=== PATIENT | male | born 1970 | race Caucasian/White ===

== ENCOUNTER 2016-08-05 15:50 | Inpatient (IN) | payer MEDICAID ==
[2016-08-05] MEDS ORDERED: ONDANSETRON 4 MG/2 ML VIAL ONE (16:05)
--- NOTE | 2016-08-05 16:06 | CPEKG ---
Heart Rate: 108 RR Interval: 556 P-R Interval: 164 QRSD Interval: 78 QT Interval: 324 QTC Interval: 435 P [place]: 73 QRS [place]: 86 T Wave [place]: 23 EKG Severity - OTHERWISE NORMAL ECG - EKG Impression: SINUS TACHYCARDIA Electronically Signed By: Holly Llamas 05-Aug-2016 17:01:03
[2016-08-05] MEDS ORDERED: NS 1,000 ML IV ONE ×3 (16:18→16:23)
[2016-08-05] MEDS ORDERED: ONDANSETRON 4 MG/2 ML VIAL IVP ONE (16:18)
--- NOTE | 2016-08-05 16:24 | EDPHY ---
HPI/HX/ROS/PE/MDM Narrative: CHIEF COMPLAINT: Possible DKA. HISTORY OF PRESENT ILLNESS: The patient is a 46-year-old male with history of diabetes, presenting with possible DKA. According to the patent's significant other, the patient had sugars in the 600s last night after insulin improved to 400s. This morning BGL elevated, he received 16 units Levemir and 10 Humulin. He did not eat anything today. While working today the patient began to feel nauseous, he starting drinking a lot of fluids, and subsequently began vomiting. The patient has continued to vomit for the past 3-4 hours. He urinated on a ketones test strip which showed DKA. The patient was last in DKA 2 months ago after cold-like symptoms. Patient has not had recent fever, cough or cold symptoms. REVIEW OF SYSTEMS: Aside from elements discussed in the HPI, a comprehensive 10-point review of systems was reviewed and is negative. PAST MEDICAL HISTORY: Diabetes, Gastroparesis, CAD, Hypertension, Neuropathy, Testicular cancer SOCIAL HISTORY: Sober 5 years. Marijuana use. VITAL SIGNS: Reviewed by me GENERAL: Tachypneic, uncomfortable appearing, ketones on his breath HEENT: Atraumatic. Eyes: No icterus, no injection. Mouth: dry mucous membranes. No erythema or lesions. Neck: supple with no adenopathy. LUNGS: Clear to auscultation bilaterally, no wheezes, rhonchi or rales. Tachypneic. CARDIAC: Tachycardic, no rubs, murmurs or gallops. ABDOMEN: Soft, nontender, nondistended, bowel sounds normal. BACK: No CVA tenderness. EXTREMITIES: No trauma. No edema. Range of motion is normal throughout. NEURO: Alert and oriented, grossly nonfocal. SKIN: Warm and dry, no rash. PSYCHIATRIC: Normal mentation, no agitation. Portions of this note were transcribed by a medical coding technician. I personally performed a history, physical exam, medical decision making, and confirmed accuracy of information the transcribed note. ED Course: Patient with history of diabetes presents with DKA. Patient has ketones on his breath. He has DMM and continues to vomit. I-stat shows BGL in the 300. Lab work ordered. Patient started on 2L normal saline. BGL here is 363. Patient received 10 units of insulin. Na and K are within normal limits. BUN 28. 5:20 p.m.: I spoke to the hospitalist team, the patient will be admitted to Dr. Singh. ED DKA protocol followed. MDM: Diff dx considered included DKA, hyperglycemia, AKA, HONK, drug or alcohol effect, drug or alcohol withdrawl, starvation ketosis. - Data Points Laboratory Results: Laboratory Results 08/05/16 16:14 08/05/16 16:14 08/05/16 08/05/16 08/05/16 17:22 17:22 16:14 WBC RBC Hgb POC Hgb Hct POC Hct MCV MCH MCHC RDW Plt Count MPV Neut % (Auto) Lymph % (Auto) [place] % (Auto) Eos % (Auto) Baso % (Auto) Nucleat RBC Rel Count Absolute Neuts (auto) Absolute Lymphs (auto) Absolute Monos (auto) Absolute Eos (auto) Absolute Basos (auto) Absolute Nucleated RBC Immature Gran % Immature Gran # POC Sodium Sodium 140 mEq/L mEq/L (134-144) POC Potassium Potassium 5.1 mEq/L mEq/L (3.5-5.2) POC Chloride Chloride 98 mEq/L mEq/L (97-110) Carbon Dioxide 14 mEq/l L mEq/l (22-31) Anion Gap 28 mEq/L H mEq/L (8-16) POC BUN BUN 28 mg/dL H mg/dL (7-23) Creatinine 1.0 mg/dL mg/dL (0.7-1.3) POC Creatinine Estimated GFR > 60 Glucose 363 mg/dL H mg/dL (70-100) POC Glucose Calcium 10.8 mg/dL H mg/dL (8.5-10.4) Phosphorus 3.6 mg/dL mg/dL (2.5-4.5) Magnesium 2.1 mg/dL mg/dL (1.6-2.3) Troponin I < 0.012 ng/mL ng/mL (0-0.034) Beta-Hydroxybutyrate Pending Urine Color Pending Urine Appearance Pending Urine pH Pending Ur Specific [place] Pending Urine Protein Pending Urine Ketones Pending Urine Blood Pending Urine Nitrate Pending Urine Bilirubin Pending Urine Urobilinogen Pending Ur Leukocyte Esterase Pending Urine Glucose Pending Urine Opiates Screen Pending Urine Barbiturates Pending Ur Phencyclidine Scrn Pending Ur Amphetamines Screen Pending U Benzodiazepines Scrn Pending Urine Cocaine Screen Pending U Marijuana (THC) Screen Pending Urine Ethyl Alcohol Pending 08/05/16 08/05/16 16:14 16:03 WBC 20.36 10^3/uL H 10^3/uL (3.80-9.50) RBC 5.18 10^6/uL 10^6/uL (4.40-6.38) Hgb 15.8 g/dL g/dL (13.7-17.5) POC Hgb 17.7 gm/dL H gm/dL (13.7-17.5) Hct 45.5 % % (40.0-51.0) POC Hct 52 % H % (40-51) MCV 87.8 fL fL (81.5-99.8) MCH 30.5 pg pg (27.9-34.1) MCHC 34.7 g/dL g/dL (32.4-36.7) RDW 13.8 % % (11.5-15.2) Plt Count 390 10^3/uL 10^3/uL (150-400) MPV 9.7 fL fL (8.7-11.7) Neut % (Auto) 89.1 % H % (39.3-74.2) Lymph % (Auto) 6.8 % L % (15.0-45.0) [place] % (Auto) 3.0 % L % (4.5-13.0) Eos % (Auto) 0.0 % L % (0.6-7.6) Baso % (Auto) 0.5 % % (0.3-1.7) Nucleat RBC Rel Count 0.0 % % (0.0-0.2) Absolute Neuts (auto) 18.13 10^3/uL H 10^3/uL (1.70-6.50) Absolute Lymphs (auto) 1.39 10^3/uL 10^3/uL (1.00-3.00) Absolute Monos (auto) 0.61 10^3/uL 10^3/uL (0.30-0.80) Absolute Eos (auto) 0.00 10^3/uL L 10^3/uL (0.03-0.40) Absolute Basos (auto) 0.10 10^3/uL 10^3/uL (0.02-0.10) Absolute Nucleated RBC 0.00 10^3/uL 10^3/uL (0-0.01) Immature Gran % 0.6 % % (0.0-1.1) Immature Gran # 0.13 10^3/uL H 10^3/uL (0.00-0.10) POC Sodium 138 mEq/L mEq/L (134-144) Sodium POC Potassium 4.5 mEq/L mEq/L (3.3-5.0) Potassium POC Chloride 102 mEq/L mEq/L (97-110) Chloride Carbon Dioxide Anion Gap POC BUN 31 mg/dL H mg/dL (7-23) BUN Creatinine POC Creatinine 1.0 mg/dL mg/dL (0.7-1.3) Estimated GFR Glucose POC Glucose 359 mg/dL H mg/dL (70-100) Calcium Phosphorus Magnesium Troponin I Beta-Hydroxybutyrate Urine Color Urine Appearance Urine pH Ur Specific [place] Urine Protein Urine Ketones Urine Blood Urine Nitrate Urine Bilirubin Urine Urobilinogen Ur Leukocyte Esterase Urine Glucose Urine Opiates Screen Urine Barbiturates Ur Phencyclidine Scrn Ur Amphetamines Screen U Benzodiazepines Scrn Urine Cocaine Screen U Marijuana (THC) Screen Urine Ethyl Alcohol Medications Given: Discontinued Medications Sodium Chloride (Ns) 1,000 mls @ 0 mls/hr IV ONCE ONE PRN Reason: Wide Open Stop: 08/05/16 16:19 Last Admin: 08/05/16 16:19 Dose: 1,000 mls Sodium Chloride (Ns) 1,000 mls @ 0 mls/hr IV ONCE ONE PRN Reason: Wide Open Stop: 08/05/16 16:24 Last Admin: 08/05/16 16:24 Dose: 1,000 mls Sodium Chloride (Ns) 1,000 mls @ 0 mls/hr IV ONCE ONE PRN Reason: Wide Open Stop: 08/05/16 16:24 Last Admin: 08/05/16 16:24 Dose: 1,000 mls Insulin Human Regular (Humulin R) 10 unit IVP EDNOW ONE Stop: 08/05/16 16:55 Last Admin: 08/05/16 17:14 Dose: 10 units Ondansetron HCl (Zofran) 4 mg IVP EDNOW ONE Stop: 08/05/16 16:19 Last Admin: 08/05/16 16:19 Dose: 4 mg Point of Care Test Results: 08/05/16 16:03 POC Sodium 138 POC Potassium 4.5 POC Chloride 102 POC BUN 31 H POC Creatinine 1.0 POC Glucose 359 H General Time Seen by Provider: 08/05/16 16:07 Initial Vital Signs: Initial Vital Signs Temperature (C) 36.5 C 08/05/16 15:51 Heart Rate 118 H 08/05/16 15:51 Respiratory Rate 30 H 08/05/16 15:51 Blood Pressure 154/100 H 08/05/16 15:51 O2 Sat (%) 98 08/05/16 15:51 O2 Delivery Mode Room Air Allergies/Adverse Reactions: No Known Allergies Allergy (Unverified 08/05/16 15:55) Home Medications: Medication Instructions Recorded Cyclobenzaprine [Flexeril 10 MG 10 mg PO TID PRN 08/05/16 (*)] Gabapentin [Neurontin 300 MG (*)] 1,200 mg PO TID 08/05/16 Insulin Detemir [Levemir] 16 unit SQ BID 08/05/16 Insulin Regular, Human [HUMULIN R] 0 unit SQ AD PRN MDD up to 5 times 08/05/16 daily Lisinopril [Zestril 5 mg (*)] 5 mg PO DAILY 08/05/16 Metoprolol Tartrate [Lopressor 25 25 mg PO BID 08/05/16 mg (*)] Naproxen 375 mg PO BID PRN 08/05/16 Nicotine [Nicoderm Cq 7 mg (*)] 7 mg TD DAILY 08/05/16 Simvastatin 40 mg PO HS 08/05/16 Tiotropium Inhaler [Spiriva 18 mcg IH DAILY 08/05/16 Handihaler] traZODone [traZODONE 50MG (*)] 100 mg PO HS 08/05/16 Departure - Departure Disposition: [facility] Acute Clinical Impression: Dehydration, Tachycardia DKA (diabetic ketoacidoses) Qualifiers: Diabetes mellitus type: type 1 Diabetes mellitus complication detail: without coma Qualified Code(s): E10.10 - Type 1 diabetes mellitus with ketoacidosis without coma Condition: Fair Report Scribed for: Holly Llamas Report Scribed by: Meagan Reese Date of Report: 08/05/16 Time of Report: 16:25
[2016-08-05 16:30] LABS: % IMMATURE GRANULYOCYTES 0.6 % (0.0-1.1); ABSOLUTE IMMATURE GRANULOCYTES 0.13 10^3/uL (0.00-0.10); ADD DIFF? NO; ADD MORPH? NO; ADD SCAN? NO; ATYPICAL LYMPHOCYTE FLAG 0 (0-99); FRAGMENT RBC FLAG 0 (0-99); HEMATOCRIT 45.5 % (40.0-51.0); HEMOGLOBIN 15.8 g/dL (13.7-17.5); LEFT SHIFT FLG 0 (0-99); LIPEMIA HEMOLYSIS FLAG 90 (0-99); MEAN CELL HEMOGLOBIN 30.5 pg (27.9-34.1); MEAN CELL HEMOGLOBIN CONCENTR. 34.7 g/dL (32.4-36.7); MEAN CELL VOLUME 87.8 fL (81.5-99.8); MEAN PLATELET VOLUME 9.7 fL (8.7-11.7); PLATELET CLUMPS FLAG 0 (0-99); PLATELET COUNT 390 10^3/uL (150-400); RED BLOOD CELL COUNT 5.18 10^6/uL (4.40-6.38); RED CELL DISTRIBUTION WIDTH 13.8 % (11.5-15.2)
[2016-08-05 16:37] LABS: ANION GAP 28 mEq/L (8-16); CALCIUM 10.8 mg/dL (8.5-10.4); CARBON DIOXIDE 14 mEq/l (22-31); CHLORIDE 98 mEq/L (97-110); GLOMERULAR FILTRATION RATE > 60; GLUCOSE 363 mg/dL (70-100); MAGNESIUM 2.1 mg/dL (1.6-2.3); POTASSIUM 5.1 mEq/L (3.5-5.2); SODIUM 140 mEq/L (134-144)
[2016-08-05] MEDS ORDERED: INSULIN REGULAR HUMAN 100 UNIT, COSIGN. REQUIRED 1 EA in NS 100 ML IV ONE (16:54)
[2016-08-05] MEDS ORDERED: INSULIN REGULAR HUMAN 100 UNIT/ML IVP ONE (16:54)
[2016-08-05 17:21] LABS: TROPONIN I < 0.012 ng/mL (0-0.034)
[2016-08-05] MEDS ORDERED: PROMETHAZINE HCL 25 MG TAB PO PRN (17:23)
[2016-08-05] MEDS ORDERED: ACETAMINOPHEN 325 MG TAB PO PRN (17:23)
[2016-08-05] MEDS ORDERED: PROMETHAZINE HCL 25 MG/ML INJ IVP PRN (17:23)
[2016-08-05] MEDS ORDERED: ONDANSETRON DISINTEGRATING 4 MG TAB PO PRN (17:23)
[2016-08-05] MEDS ORDERED: ONDANSETRON 4 MG/2 ML VIAL IVP PRN (17:23)
[2016-08-05 17:35] LABS: COLOR YELLOW; LEUKOCYTE ESTERASE,URINE NEGATIVE (NEGATIVE); NITRITE,URINE NEGATIVE (NEGATIVE)
[2016-08-05 17:35] LABS: BASE EXCESS -13.7 mEq/L (-2.5-2.5); BICARBONATE 10 mEq/L (22-26); MEASURED OXYGEN SATURATION 97 % (92-95); PO2 99 mmHg (65-75); TCO2 10 mEq/L (23-27)
[2016-08-05 17:36] LABS: O2 CONCENTRATIION ROOM AIR % (0-100); P/F RATIO 0 RATIO
[2016-08-05 17:37] LABS: PCO2 17 mmHg (34-38)
[2016-08-05 17:44] LABS: B-HYDROXYBUTYRATE 8.05 mmol/L (0.02-0.27)
[2016-08-05 17:44] LABS: MUCUS TRACE /lpf (NONE-1+)
[2016-08-05 17:46] LABS: WBC,URINE NONE SEEN /hpf (0-3)
[2016-08-05 17:56] LABS: PHENCYCLIDINE URINE BCH < 6 ng/ml (NEGATIVE); PHENCYCLIDINE URINE BCH NEGATIVE (NEGATIVE); TETRAHYDROCANNABINOL URINE 77 ng/mL (NEGATIVE)
--- NOTE | 2016-08-05 18:01 | PDGENHP ---
History and Physical - Chief Complaint Acute vomiting - History of Present Illness PCP: At [facility] HPI: 46-year-old male presenting with acute nonbloody emesis with associated nausea, pain located in his abdomen, nonbloody diarrhea, intermittent chest pains with general malaise and onset of symptoms on the morning of presentation. Patient reports that he has been experiencing intermittent chest pains for the past week as well as intermittent nausea and declining oral intake. He has been adherent to his Levemir 16 units twice daily and had been using as needed regular insulin with meals, approximately 5 times per day. His partner reports that on the morning of this presentation his symptoms began to escalate and she checked his urine dipstick which was positive for ketones. She administered 22 units of regular insulin as well as Levemir. The patient's symptoms continued to escalate she brought him to the emergency department. The patient and his partner usually reside in [place] but there transitioning into subsidized housing in [place]. History Information - Allergies/Home Medication List Allergies/Adverse Reactions: No Known Allergies Allergy (Unverified 08/05/16 15:55) I have personally reviewed and updated: family history, medical history, social history, surgical history - Past Medical History coronary artery disease ( Reported [place] x2), cancer ( testicular), diabetes type 1 - Surgical History Additional surgical history: testicular surgery - Family History Additional family history: mother with diabetes - Social History Smoking Status: Light smoker Alcohol Use: Sober (sober previous alcoholic) Drug Use: None ( no IV drug use) Additional social history: patient and partner have historically reside in [place], transitioning to [place] Review of Systems ROS: 10pt was reviewed & negative except for what was stated in HPI & below Constitutional: Reports: malaise Cardiac: Reports: chest pain Gastrointestinal: Reports: vomitting, abdominal pain, diarrhea, nausea Physical Exam Temp Pulse Resp BP Pulse Ox 36.5 C 118 H 30 H 154/100 H 98 08/05/16 15:51 08/05/16 15:51 08/05/16 15:51 08/05/16 15:51 08/05/16 15:51 Constitutional: no apparent distress ( moderate amount of distress), chronically ill appearing, uncomfortable, unkempt Eyes: PERRL, anicteric sclera, EOMI Ears, Nose, Mouth, Throat: other ( tacky mucous membranes) Cardiovascular: tachycardia, No systolic murmur, No irregularly irregular, No edema Respiratory: no respiratory distress, no rales or rhonchi, clear to auscultation Gastrointestinal: normoactive bowel sounds, tenderness ( right upper quadrant and midepigastric area), No guarding, No distension Skin: other ( no open wounds noted) Neurologic: AAOx3, No asterixes ( no tremulousness) Psychiatric: not encephalopathic, thought process linear, anxious, agitated Lab Data & Imaging Review 08/05/16 16:14 08/05/16 16:14 WBC 20.36 10^3/uL (3.80-9.50) H 08/05/16 16:14 RBC 5.18 10^6/uL (4.40-6.38) 08/05/16 16:14 Hgb 15.8 g/dL (13.7-17.5) 08/05/16 16:14 POC Hgb 17.7 gm/dL (13.7-17.5) H 08/05/16 16:03 Hct 45.5 % (40.0-51.0) 08/05/16 16:14 POC Hct 52 % (40-51) H 08/05/16 16:03 MCV 87.8 fL (81.5-99.8) 08/05/16 16:14 MCH 30.5 pg (27.9-34.1) 08/05/16 16:14 MCHC 34.7 g/dL (32.4-36.7) 08/05/16 16:14 RDW 13.8 % (11.5-15.2) 08/05/16 16:14 Plt Count 390 10^3/uL (150-400) 08/05/16 16:14 MPV 9.7 fL (8.7-11.7) 08/05/16 16:14 Neut % (Auto) 89.1 % (39.3-74.2) H 08/05/16 16:14 Lymph % (Auto) 6.8 % (15.0-45.0) L 08/05/16 16:14 [place] % (Auto) 3.0 % (4.5-13.0) L 08/05/16 16:14 Eos % (Auto) 0.0 % (0.6-7.6) L 08/05/16 16:14 Baso % (Auto) 0.5 % (0.3-1.7) 08/05/16 16:14 Nucleat RBC Rel Count 0.0 % (0.0-0.2) 08/05/16 16:14 Absolute Neuts (auto) 18.13 10^3/uL (1.70-6.50) H 08/05/16 16:14 Absolute Lymphs (auto) 1.39 10^3/uL (1.00-3.00) 08/05/16 16:14 Absolute Monos (auto) 0.61 10^3/uL (0.30-0.80) 08/05/16 16:14 Absolute Eos (auto) 0.00 10^3/uL (0.03-0.40) L 08/05/16 16:14 Absolute Basos (auto) 0.10 10^3/uL (0.02-0.10) 08/05/16 16:14 Absolute Nucleated RBC 0.00 10^3/uL (0-0.01) 08/05/16 16:14 Immature Gran % 0.6 % (0.0-1.1) 08/05/16 16:14 Immature Gran # 0.13 10^3/uL (0.00-0.10) H 08/05/16 16:14 Puncture Site LEFT RADIAL 08/05/16 17:30 Patient Temperature 37.0 DEGREES 08/05/16 17:30 pCO2 17 mmHg (34-38) L* 08/05/16 17:30 pO2 99 mmHg (65-75) H 08/05/16 17:30 Total CO2 10 mEq/L (23-27) L 08/05/16 17:30 ABG pH 7.36 (7.35-7.45) 08/05/16 17:30 ABG PO2/FiO2 Ratio 0 RATIO 08/05/16 17:30 ABG HCO3 10 mEq/L (22-26) L 08/05/16 17:30 ABG O2 Saturation 97 % (92-95) H 08/05/16 17:30 ABG Base Excess -13.7 mEq/L (-2.5-2.5) L 08/05/16 17:30 O2 Concentration % ROOM AIR % (0-100) 08/05/16 17:30 POC Sodium 138 mEq/L (134-144) 08/05/16 16:03 Sodium 140 mEq/L (134-144) 08/05/16 16:14 POC Potassium 4.5 mEq/L (3.3-5.0) 08/05/16 16:03 Potassium 5.1 mEq/L (3.5-5.2) 08/05/16 16:14 POC Chloride 102 mEq/L (97-110) 08/05/16 16:03 Chloride 98 mEq/L (97-110) 08/05/16 16:14 Carbon Dioxide 14 mEq/l (22-31) L 08/05/16 16:14 Anion Gap 28 mEq/L (8-16) H 08/05/16 16:14 POC BUN 31 mg/dL (7-23) H 08/05/16 16:03 BUN 28 mg/dL (7-23) H 08/05/16 16:14 Creatinine 1.0 mg/dL (0.7-1.3) 08/05/16 16:14 POC Creatinine 1.0 mg/dL (0.7-1.3) 08/05/16 16:03 Estimated GFR > 60 08/05/16 16:14 Glucose 363 mg/dL (70-100) H 08/05/16 16:14 POC Glucose 359 mg/dL (70-100) H 08/05/16 16:03 Calcium 10.8 mg/dL (8.5-10.4) H 08/05/16 16:14 Phosphorus 3.6 mg/dL (2.5-4.5) 08/05/16 16:14 Magnesium 2.1 mg/dL (1.6-2.3) 08/05/16 16:14 Troponin I < 0.012 ng/mL (0-0.034) 08/05/16 16:14 Beta-Hydroxybutyrate 8.05 mmol/L (0.02-0.27) H 08/05/16 16:14 Urine Color YELLOW 08/05/16 17:22 Urine Appearance CLEAR 08/05/16 17:22 Urine pH 5.0 (5.0-7.5) 08/05/16 17:22 Ur Specific [place] 1.021 (1.002-1.030) 08/05/16 17:22 Urine Protein 1+ (NEGATIVE) H 08/05/16 17:22 Urine Ketones 2+ (NEGATIVE) H 08/05/16 17:22 Urine Blood NEGATIVE (NEGATIVE) 08/05/16 17:22 Urine Nitrate NEGATIVE (NEGATIVE) 08/05/16 17:22 Urine Bilirubin NEGATIVE (NEGATIVE) 08/05/16 17:22 Urine Urobilinogen NEGATIVE EU (0.2-1.0) 08/05/16 17:22 Ur Leukocyte Esterase NEGATIVE (NEGATIVE) 08/05/16 17:22 Urine RBC 1-3 /hpf (0-3) 08/05/16 17:22 Urine WBC NONE SEEN /hpf (0-3) 08/05/16 17:22 Ur Epithelial Cells TRACE /lpf (NONE-1+) 08/05/16 17:22 Hyaline Casts 5-15 /lpf (0-1) 08/05/16 17:22 Urine Mucus TRACE /lpf (NONE-1+) 08/05/16 17:22 Urine Glucose 3+ (NEGATIVE) H 08/05/16 17:22 Visualized and Interpreted EKG results: Yes EKG Interpretation: Positive for: other ( sinus tachycardia with isolated ST elevation in lead V2) Assessment & Plan Assessment: 46-year-old male presenting with acute diabetic ketoacidosis in the setting of systemic inflammatory response syndrome Plan: 1. Diabetic ketoacidosis. Acute, new problem this provider, further workup indicated. Evidenced by anion gap of 28, glucose of 360, positive beta hydroxybutyrate. Unclear precipitant - abdominal symptoms of nausea and vomiting will be treated supportively with antiemetics and pain medications, as well as patient being made NPO with sips and chips - per discussion with Dr. Llamas, she is reporting the patient received 2 L normal saline in the emergency department, 10 units of insulin, initiated on insulin drip - admit to ICU, initiate on DKA protocol - investigate for precipitating cause, cycle cardiac enzymes, repeat EKG in a.m. given reported cardiac history, infectious workup as outlined below - order outside records from [facility] determine whether patient does have as an extensive medical history as reported - adjust IV fluids overnight depending on anion gap and labs 2. Systemic inflammatory response syndrome. Acute, new problem this provider, further workup indicated. Evidenced by tachycardia, tachypnea, leukocytosis, no clear source of infection, may be secondary to DKA - send respiratory viral panel, lipase, liver panel, cardiac enzymes, TSH - get chest x-ray - send C diff PCR - continue IV fluids - hold on antibiotics 3. Metabolic acidosis. Acute, anion gap, secondary to DKA, treat as outlined above Diet. NPO with sips and chips, IV fluids advance in a.m. if tolerating Prophylaxis. High risk patient, Lovenox 40 Code. Full Disposition. Anticipated discharge uncertain this time, anticipated length stay is greater than 48 hours warranting inpatient admission status for acute DKA complicated by systemic inflammatory response syndrome. The patient is currently critically ill with high risk of morbidity and/or mortality, 45 minutes of critical care time spent at bedside with patient and partner as well as coordinating care in the intensive care unit.
[2016-08-05] MEDS ORDERED: INSULIN REGULAR HUMAN 100 UNIT in NS 100 ML IV SCH (18:56)
[2016-08-05] MEDS ORDERED: D50W 25 GM/50 ML SYR IVP PRN ×2 (18:56→23:25)
[2016-08-05] MEDS ORDERED: NAPROXEN 375 MG PO PRN ×2 (18:57→19:01)
[2016-08-05] MEDS ORDERED: CYCLOBENZAPRINE 10 MG TAB PO PRN (18:57)
[2016-08-05] MEDS ORDERED: INSULIN REGULAR HUMAN 100 UNIT/ML IVP PRN (18:59)
[2016-08-05 19:24] LABS: ETHANOL URINE < 10 (NEGATIVE); ETHANOL URINE NEGATIVE (NEGATIVE)
[2016-08-05] MEDS ORDERED: ALTEPLASE 2 MG VIAL IVP PRN (19:28)
[2016-08-05] MEDS: NS 1,000 ML IV SCH (19:59)
[2016-08-05 20:02] LABS: ANION GAP 17 mEq/L (8-16); CALCIUM 9.8 mg/dL (8.5-10.4); CARBON DIOXIDE 17 mEq/l (22-31); CHLORIDE 106 mEq/L (97-110); CREATININE 0.8 mg/dL (0.7-1.3); GLOMERULAR FILTRATION RATE > 60; GLUCOSE 185 mg/dL (70-100); POTASSIUM 4.2 mEq/L (3.5-5.2); SODIUM 140 mEq/L (134-144)
[2016-08-05 20:26] LABS: ALBUMIN 4.7 g/dL (3.5-5.0); BILIRUBIN,TOTAL 0.7 mg/dL (0.1-1.4); BILIRUBIN-CONJUGATED 0.3 mg/dL (0.0-0.5); BILIRUBIN-UNCONJUGATED 0.4 mg/dL (0.0-1.1); TOTAL PROTEIN 7.3 g/dL (6.3-8.2)
[2016-08-05] MEDS ORDERED: NON-FORMULARY NEW DRUG (Simvastatin [Simvastatin] 40 MG) PO SCH (21:00)
[2016-08-05] MEDS: traZODone 50 MG TAB PO SCH (21:34)
[2016-08-05] MEDS: METOPROLOL TARTRATE 25 MG TAB PO SCH (21:34)
[2016-08-05] MEDS: GABAPENTIN 300 MG CAP PO SCH (21:34)
[2016-08-05] MEDS: ATORVASTATIN CALCIUM 20 MG TAB PO SCH (21:35)
[2016-08-05] MEDS ORDERED: PROTOCOL POTASSIUM 1 DOSE MISC PRN ×2 (22:58)
[2016-08-05] MEDS ORDERED: PROTOCOL MAGNESIUM 1 DOSE IV PRN (22:58)
[2016-08-05 23:11] LABS: ANION GAP 9 mEq/L (8-16); CALCIUM 8.7 mg/dL (8.5-10.4); CARBON DIOXIDE 21 mEq/l (22-31); CHLORIDE 106 mEq/L (97-110); CREATININE 0.7 mg/dL (0.7-1.3); GLOMERULAR FILTRATION RATE > 60; GLUCOSE 92 mg/dL (70-100); POTASSIUM 3.9 mEq/L (3.5-5.2); SODIUM 136 mEq/L (134-144)
[2016-08-05] MEDS ORDERED: INSULIN GLARGINE 100 UNITS/ML SYRINGE SC SCH (23:24)
[2016-08-05] MEDS ORDERED: NS 1,000 ML IV SCH (23:30)
[2016-08-06] MEDS ORDERED: POTASSIUM Cl (KCl) 50 ML IV ONE (00:34)
[2016-08-06] MEDS: NS 1,000 ML IV SCH (00:39)
[2016-08-06 04:33] LABS: PCO2 VENOUS 36 mmHg (40-44); PH VENOUS BLOOD 7.38 (7.31-7.42); PO2 VENOUS 42 mmHg (35-40); TCO2 VENOUS 22 mEq/L (23-27); VEN MEASURED OXYGEN SATURATION 78 % (65-75)
[2016-08-06 04:34] LABS: % IMMATURE GRANULYOCYTES 0.5 % (0.0-1.1); ABSOLUTE IMMATURE GRANULOCYTES 0.11 10^3/uL (0.00-0.10); ADD DIFF? NO; ADD MORPH? NO; ADD SCAN? NO; ATYPICAL LYMPHOCYTE FLAG 0 (0-99); FRAGMENT RBC FLAG 0 (0-99); HEMATOCRIT 33.9 % (40.0-51.0); HEMOGLOBIN 11.7 g/dL (13.7-17.5); LEFT SHIFT FLG 0 (0-99); LIPEMIA HEMOLYSIS FLAG 90 (0-99); MEAN CELL HEMOGLOBIN 30.5 pg (27.9-34.1); MEAN CELL HEMOGLOBIN CONCENTR. 34.5 g/dL (32.4-36.7); MEAN CELL VOLUME 88.5 fL (81.5-99.8); MEAN PLATELET VOLUME 9.2 fL (8.7-11.7); PLATELET CLUMPS FLAG 0 (0-99); PLATELET COUNT 265 10^3/uL (150-400); RED BLOOD CELL COUNT 3.83 10^6/uL (4.40-6.38)
[2016-08-06 04:53] LABS: POTASSIUM 3.5 mEq/L (3.5-5.2)
[2016-08-06 04:54] LABS: ALANINE AMINOTRANSFERASE 38 IU/L (21-72); ALBUMIN 3.1 g/dL (3.5-5.0); ALKALINE PHOSPHATASE 107 IU/L (38-126); ANION GAP 7 mEq/L (8-16); ASPARTATE AMINOTRANSFERASE 18 IU/L (17-59); BILIRUBIN,TOTAL 0.6 mg/dL (0.1-1.4); CARBON DIOXIDE 21 mEq/l (22-31); CHLORIDE 109 mEq/L (97-110); CREATININE 0.6 mg/dL (0.7-1.3); GLOMERULAR FILTRATION RATE > 60; GLUCOSE 108 mg/dL (70-100); MAGNESIUM 1.6 mg/dL (1.6-2.3); SODIUM 137 mEq/L (134-144); TOTAL PROTEIN 5.3 g/dL (6.3-8.2)
[2016-08-06 05:01] LABS: TROPONIN I < 0.012 ng/mL (0-0.034)
[2016-08-06] MEDS ORDERED: MAGNESIUM SULF 1 GM/DEXTROSE 100 ML IV ONE (05:19)
[2016-08-06] MEDS: POTASSIUM Cl (KCl) 50 ML IV SCH ×3 (06:50→08:41)
[2016-08-06] MEDS: NICOTINE 7 MG/24 HR PATCH TD SCH (08:25)
[2016-08-06] MEDS: ENOXAPARIN 40 MG/0.4 ML SYR SC SCH (08:25)
[2016-08-06] MEDS: GABAPENTIN 300 MG CAP PO SCH ×3 (08:25→21:32)
[2016-08-06] MEDS: METOPROLOL TARTRATE 25 MG TAB PO SCH ×2 (08:25→21:32)
[2016-08-06] MEDS: INSULIN REGULAR HUMAN 100 UNIT/ML SC SCH ×4 (08:40→21:40)
--- NOTE | 2016-08-06 08:56 | CPEKG ---
Heart Rate: 95 RR Interval: 632 P-R Interval: 164 QRSD Interval: 80 QT Interval: 348 QTC Interval: 438 P [place]: 64 QRS [place]: 82 T Wave [place]: 49 EKG Severity - NORMAL ECG - EKG Impression: SINUS RHYTHM Electronically Signed By: Harlan Martini 06-Aug-2016 11:11:39
[2016-08-06 09:40] LABS: HEMOGLOBIN A1C 11.3 % (4.0-6.0)
[2016-08-06] MEDS ORDERED: INSULIN GLARGINE 100 UNITS/ML SYRINGE SC SCH (09:50)
[2016-08-06] MEDS ORDERED: NAPROXEN SODIUM 220 MG TAB PO PRN (09:52)
--- NOTE | 2016-08-06 09:54 | HOSPPROG ---
Hospitalist Progress Note Assessment/Plan: DKA - suspect secondary to gastroparesis and vomiting - Gap closed, transitioned to Lantus last night. Start carb consistent diet. Will make Lantus BID and up-titrate to outpt dose as oral intake improves. Cont SSI ACHS. Cont NS at 125 for now. Recheck BMP this afternoon. Gastroparesis - vomiting improved. Start Reglan, PPI. Type 1 DM - he is normally compliant with insulin, partner administers for him. A1c pending. Resume Lantus / SSI as above. SIRS - presented to tachycardia and leukocytosis. Suspect secondary to DKA and volume depletion. No e/o infection. Afebrile, CXR clear, ua neg for infection. Mild abdominal tenderness. If this worsens or fevers, consider imaging. No more diarrhea, but check GI pathogen panel if recurs. Peripheral neuropathy - cont gabapentin Homeless - staying with a friend. He and partner trying to get into residential program. CM consult placed. DVT PPLX - Lovenox Full code Dispo - transfer to med surg, cont inpt Subjective: Pt feels a bit better. No more vomiting. No more diarrhea. He wants to eat. ABdominal pain improved. Does give h/o gastroparesis. Objective: Vital Signs Temp Pulse Resp BP Pulse Ox 36.6 C 99 18 126/79 H 96 08/06/16 08:00 08/06/16 08:00 08/06/16 08:00 08/06/16 08:00 08/06/16 08:00 Microbiology 08/06/16 00:30 Respiratory Panel (PCR) - Final Nasal, Sinus - Swab No Organism Detected Laboratory Results 08/06/16 04:25 08/06/16 04:25 08/05/16 08/06/16 08/07/16 05:59 05:59 05:59 Intake Total 6745 Output Total 963 650 Balance 6120 -650 - Physical Exam Constitutional: no apparent distress Eyes: PERRL Ears, Nose, Mouth, Throat: moist mucous membranes Cardiovascular: regular rate and rhythym Respiratory: no respiratory distress, clear to auscultation Gastrointestinal: normoactive bowel sounds, other (mild epigastric TTP, no r/r/g ) Skin: warm Musculoskeletal: full muscle strength Neurologic: AAOx3 Psychiatric: interacting appropriately ICD10 Worksheet Patient Problems: Problems Problem Status Onset DKA (diabetic ketoacidoses) Acute
[2016-08-06] MEDS: INSULIN GLARGINE 100 UNITS/ML SYRINGE SC SCH ×2 (10:34→21:39)
[2016-08-06] MEDS: PANTOPRAZOLE SODIUM 40 MG TAB PO SCH (10:34)
[2016-08-06] MEDS: METOCLOPRAMIDE 10 MG TAB PO SCH ×3 (13:55→21:31)
[2016-08-06] MEDS: TIOTROPIUM INHALER 18 MCG/DOSE 5 DOSE/MDI IH SCH (14:15)
[2016-08-06 16:54] LABS: ANION GAP 6 mEq/L (8-16); CALCIUM 8.5 mg/dL (8.5-10.4); CARBON DIOXIDE 23 mEq/l (22-31); CHLORIDE 104 mEq/L (97-110); CREATININE 0.6 mg/dL (0.7-1.3); GLOMERULAR FILTRATION RATE > 60; GLUCOSE 298 mg/dL (70-100); POTASSIUM 4.4 mEq/L (3.5-5.2); SODIUM 133 mEq/L (134-144)
[2016-08-06] MEDS: ATORVASTATIN CALCIUM 20 MG TAB PO SCH (21:31)
[2016-08-06] MEDS: traZODone 50 MG TAB PO SCH (21:32)
[2016-08-07 00:37] LABS: POTASSIUM 3.7 mEq/L (3.5-5.2)
[2016-08-07] MEDS ORDERED: POTASSIUM Cl (KCl) 50 ML IV ONE (00:57)
[2016-08-07 05:40] LABS: % IMMATURE GRANULYOCYTES 0.2 % (0.0-1.1); ABSOLUTE IMMATURE GRANULOCYTES 0.02 10^3/uL (0.00-0.10); ADD DIFF? NO; ADD MORPH? NO; ADD SCAN? NO; ATYPICAL LYMPHOCYTE FLAG 0 (0-99); FRAGMENT RBC FLAG 0 (0-99); HEMATOCRIT 36.6 % (40.0-51.0); HEMOGLOBIN 12.4 g/dL (13.7-17.5); LEFT SHIFT FLG 0 (0-99); LIPEMIA HEMOLYSIS FLAG 90 (0-99); MEAN CELL HEMOGLOBIN 30.4 pg (27.9-34.1); MEAN CELL HEMOGLOBIN CONCENTR. 33.9 g/dL (32.4-36.7); MEAN CELL VOLUME 89.7 fL (81.5-99.8); MEAN PLATELET VOLUME 9.2 fL (8.7-11.7); PLATELET CLUMPS FLAG 10 (0-99); PLATELET COUNT 263 10^3/uL (150-400); RED BLOOD CELL COUNT 4.08 10^6/uL (4.40-6.38); RED CELL DISTRIBUTION WIDTH 14.1 % (11.5-15.2)
[2016-08-07 06:21] LABS: ANION GAP 8 mEq/L (8-16); CALCIUM 8.7 mg/dL (8.5-10.4); CARBON DIOXIDE 24 mEq/l (22-31); CHLORIDE 108 mEq/L (97-110); CREATININE 0.6 mg/dL (0.7-1.3); GLOMERULAR FILTRATION RATE > 60; GLUCOSE 49 mg/dL (70-100); POTASSIUM 3.6 mEq/L (3.5-5.2); SODIUM 140 mEq/L (134-144)
[2016-08-07] MEDS ORDERED: D50W 25 GM/50 ML SYR IVP ONE (07:09)
[2016-08-07] MEDS: METOCLOPRAMIDE 10 MG TAB PO SCH ×2 (08:26→11:41)
[2016-08-07] MEDS: PANTOPRAZOLE SODIUM 40 MG TAB PO SCH (08:26)
[2016-08-07] MEDS: METOPROLOL TARTRATE 25 MG TAB PO SCH (08:26)
[2016-08-07] MEDS: GABAPENTIN 300 MG CAP PO SCH (08:28)
[2016-08-07] MEDS: NICOTINE 7 MG/24 HR PATCH TD SCH (08:28)
[2016-08-07] MEDS: ENOXAPARIN 40 MG/0.4 ML SYR SC SCH (08:28)
[2016-08-07] MEDS: TIOTROPIUM INHALER 18 MCG/DOSE 5 DOSE/MDI IH SCH (08:55)
[2016-08-07] MEDS: INSULIN REGULAR HUMAN 100 UNIT/ML SC SCH ×2 (10:11→12:31)
[2016-08-07] MEDS: INSULIN GLARGINE 100 UNITS/ML SYRINGE SC SCH (10:13)
[2016-08-07] MEDS ORDERED: POTASSIUM CL 10 MEQ TAB PO ONE (10:45)
[2016-08-07 12:03] VITALS: BP 125/84; PULSE 85; RESP 17; TEMP 97.7; O2SAT 100
--- NOTE | 2016-08-07 21:47 | GDS ---
[f rep st] DISCHARGE SUMMARY DISCHARGE DIAGNOSES: 1. Diabetic ketoacidosis, resolved. 2. Type 1 diabetes. 3. History of gastroparesis. 4. Systemic inflammatory response syndrome resolved. 5. Peripheral neuropathy. 6. Homelessness. CONSULTATIONS: None. HISTORY OF DETAILS: Please see the history and physical dated August 05, 2016. In brief, the patient is a 46-year-old male with a history of type 1 diabetes who presents to the emergency department wit h nausea and vomiting and was found to be in DKA and was admitted to the hospital for further manage ment. HOSPITAL COURSE: The patient was admitted to the ICU, received aggressive fluid resuscitation as we ll as insulin drip. His anion gap closed and his acidemia resolved. He was transitioned to subcuta neous insulin. His nausea and vomiting also resolved, and he was tolerating a full diet at the time of discharge. He reports a history of gastroparesis and uses Reglan. I suspect this is a contribu tory factor to his DKA with the onset of nausea and vomiting. He will need close followup with his primary care provider. DISPOSITION: Patient is discharged home in stable condition. DISCHARGE MEDICATIONS: Please see FAGUO for complete updated outpatient medication list. The kaylee kelley will continue his outpatient doses of Levemir at 16 units subcutaneous twice daily and Humulin on his usual sliding scale. There are no other changes to his medications. FOLLOW UP: Patient instructed to follow up with his primary care provider at [facility] within 2-3 days for ongoing management of his diabetes. /[id number]/MODL
== END 2016-08-07 12:25 | disposition home or self-care (01) | DRG 639 ==
LOC: F2N 18:46
PROVIDERS: ADMIT Internal Medicine; ATTEND Hospitalist
PROC: 02HV33Z Insertion of Infusion Device into Superior Vena Cava, Percutaneous Approach (ICD-10-PCS; principal; 2016-08-05)
DX: E10.10 Type 1 diabetes mellitus with ketoacidosis without coma (principal); E10.43 Type 1 diabetes mellitus with diabetic autonomic (poly)neuropathy; K31.84 Gastroparesis; E10.40 Type 1 diabetes mellitus with diabetic neuropathy, unspecified; I25.10 Atherosclerotic heart disease of native coronary artery without angina pectoris; I10 Essential (primary) hypertension; Z59.0 Homelessness
CPT/HCPCS: 80307; 82947-QW; 96374; C1751; G0480; J1650; J1815; J2405; J2550; J3475